=== PATIENT | male | born 1965 | race Asian ===

== ENCOUNTER 2021-05-05 14:36 | Emergency (ER) | payer OTHER ==
[~2021-05-05] VITALS: Ht 167.6 cm; Wt 64.0 kg
[2021-05-05] MEDS ORDERED: AMOX-CLAV 875-1 EACH PO (17:16)
[2021-05-05] MEDS ORDERED: NASAL MIST126 ML (17:18)
== END 2021-05-05 17:28 | disposition home or self-care (01) ==
LOC: ER 14:36
DX: S61.422A Laceration with foreign body of left hand, initial encounter (principal); W45.8XXA Other foreign body or object entering through skin, initial encounter; Y93.89 Activity, other specified; Y92.89 Other specified places as the place of occurrence of the external cause; Y99.8 Other external cause status